=== PATIENT | female | born 1965 | race Caucasian/White ===

== ENCOUNTER 2021-05-21 21:55 | Inpatient (IN) | payer OTHER ==
[~2021-05-21] VITALS: Ht 162.6 cm; Wt 78.9 kg
[2021-05-22] MEDS ORDERED: FISH OIL 1,0001 EACH PO (03:20)
[2021-05-22] MEDS ORDERED: LOPRESSOR 25 MG25 MG PO (03:21)
[2021-05-22] MEDS ORDERED: BRILINTA60 MG PO (03:21)
[2021-05-22] MEDS ORDERED: WELLBUTRIN 75 M75 MG PO (03:21)
[2021-05-22 03:22] LABS: HEMOGLOBIN 14.2 gm/dl (12.3-15.3); RED BLOOD COUNT 4.48 M/UL (4.00-5.10); WHITE BLOOD COUNT 10.3 K/UL (4.5-11.0)
[2021-05-22] MEDS ORDERED: ELAVIL 50 MG TA50 MG PO (03:22)
[2021-05-22] MEDS ORDERED: LOPID600 MG PO (03:22)
[2021-05-22] MEDS ORDERED: MAGNESIUM500 MG PO (03:23)
[2021-05-22] MEDS ORDERED: VISTARIL50 MG PO (03:23)
[2021-05-22] MEDS ORDERED: MELATONIN5 M2 PO (03:24)
[2021-05-22] MEDS ORDERED: ASPIRIN81 MG PO (03:25)
[2021-05-22] MEDS ORDERED: PRILOSEC OTC20 MG PO (03:25)
[2021-05-22] MEDS ORDERED: SEROQUEL100 MG PO (03:25)
[2021-05-22] MEDS ORDERED: CLARITIN10 MG PO (03:26)
[2021-05-22] MEDS ORDERED: LASIX20 MG PO (03:27)
[2021-05-22] MEDS ORDERED: [UNRECOGNIZED DRUG - OTHER] PO (03:27)
[2021-05-22] MEDS ORDERED: PLAVIX75 MG PO (03:27)
[2021-05-22] MEDS ORDERED: EFFEXOR 37.537.5 MG PO (03:28)
[2021-05-22] MEDS ORDERED: FLUOXETINE HCL20 M1 PO (03:28)
[2021-05-22] MEDS ORDERED: LIPITOR40 MG PO (03:28)
[2021-05-22] MEDS ORDERED: ALLOPURINOL100 MG PO (03:29)
[2021-05-22 04:52] LABS: BUN/CREATININE RATIO 27 (0-10)
[2021-05-23 03:13] LABS: HEMOGLOBIN 12.6 gm/dl (12.3-15.3); WHITE BLOOD COUNT 8.6 K/UL (4.5-11.0)
[2021-05-23 03:18] LABS: RED BLOOD COUNT 3.96 M/UL (4.00-5.10)
[2021-05-23 04:07] LABS: BUN/CREATININE RATIO 25 (0-10)
[2021-05-24 06:33] LABS: HEMOGLOBIN 11.1 gm/dl (12.3-15.3); RED BLOOD COUNT 3.59 M/UL (4.00-5.10); WHITE BLOOD COUNT 8.1 K/UL (4.5-11.0)
--- NOTE | 2021-05-24 09:03 | NUR ---
PATIENT HAS TEMP OF 102.6. PROVIDE NOTIFIED. WILL CONTINUE TO MONITOR.
[2021-05-25 04:00] LABS: HEMOGLOBIN 9.7 gm/dl (12.3-15.3); WHITE BLOOD COUNT 6.7 K/UL (4.5-11.0)
[2021-05-25 04:02] LABS: RED BLOOD COUNT 3.15 M/UL (4.00-5.10)
[2021-05-25 04:22] LABS: BUN/CREATININE RATIO 18 (0-10)
[2021-05-26 04:20] LABS: BUN/CREATININE RATIO 18 (0-10)
[2021-05-27 07:40] LABS: BUN/CREATININE RATIO 16 (0-10)
[2021-05-28 07:26] LABS: HEMOGLOBIN 9.5 gm/dl (12.3-15.3); RED BLOOD COUNT 3.24 M/UL (4.00-5.10); WHITE BLOOD COUNT 6.2 K/UL (4.5-11.0)
[2021-05-30 11:29] LABS: HEMOGLOBIN 11.2 gm/dl (12.3-15.3); WHITE BLOOD COUNT 7.7 K/UL (4.5-11.0)
[2021-05-30 11:32] LABS: RED BLOOD COUNT 3.57 M/UL (4.00-5.10)
[2021-05-30 12:06] LABS: BUN/CREATININE RATIO 25 (0-10)
--- NOTE | 2021-05-30 18:13 | NUR ---
ATTEMPTED TO CALL REPORT TO [facility] @1809 AND @ 1817...NO ANSWER.
== END 2021-05-30 18:10 | disposition home health service (06) | DRG 853 ==
LOC: PROG CARE 21:55 → M/S 05-22 01:31 → PROG CARE 05-22 01:31 → M/S 05-23 23:15
PROVIDERS: Internal Medicine; Orthopaedic Surgery; ADMIT Internal Medicine
PROC: 0PSG04Z Reposition Left Humeral Shaft with Internal Fixation Device, Open Approach (ICD-10-PCS; principal; 2021-05-23 08:00)
DX: A41.51 Sepsis due to Escherichia coli [E. coli] (principal); R65.21 Severe sepsis with septic shock; S42.202A Unspecified fracture of upper end of left humerus, initial encounter for closed fracture; N30.00 Acute cystitis without hematuria; E66.2 Morbid (severe) obesity with alveolar hypoventilation; W10.8XXA Fall (on) (from) other stairs and steps, initial encounter; I25.10 Atherosclerotic heart disease of native coronary artery without angina pectoris; I12.9 Hypertensive chronic kidney disease with stage 1 through stage 4 chronic kidney disease, or unspecified chronic kidney disease; N18.30 Chronic kidney disease, stage 3 unspecified; E11.22 Type 2 diabetes mellitus with diabetic chronic kidney disease; E11.51 Type 2 diabetes mellitus with diabetic peripheral angiopathy without gangrene; E87.5 Hyperkalemia; B96.20 Unspecified Escherichia coli [E. coli] as the cause of diseases classified elsewhere; E11.40 Type 2 diabetes mellitus with diabetic neuropathy, unspecified; F32.A Depression, unspecified; E86.0 Dehydration; F17.210 Nicotine dependence, cigarettes, uncomplicated; E11.65 Type 2 diabetes mellitus with hyperglycemia; F41.9 Anxiety disorder, unspecified; Z95.1 Presence of aortocoronary bypass graft; Z79.4 Long term (current) use of insulin; Z95.5 Presence of coronary angioplasty implant and graft; Y93.89 Activity, other specified; Z68.30 Body mass index [BMI] 30.0-30.9, adult; Y92.89 Other specified places as the place of occurrence of the external cause; Y99.8 Other external cause status; Z79.82 Long term (current) use of aspirin; Z90.710 Acquired absence of both cervix and uterus; Z90.49 Acquired absence of other specified parts of digestive tract; Z83.6 Family history of other diseases of the respiratory system; Z80.8 Family history of malignant neoplasm of other organs or systems; Z98.890 Other specified postprocedural states
CPT/HCPCS: 36415; 71045; 73030; 73200; 76000; 80048; 80053; 80061; 81001; 82550; 82553; 82962; 83036; 83605; 83735; 84100; 84439; 84443; 84484; 85025; 85027; 85610; 85730; 86140; 86850; 86900; 86901; 87040; 87077; 87086; 87186; 93005; 94640; 94664; 94760; 97110-GP-CQ; 97116-GP-CQ; 97162; 97166; 97535; C1713; C9113; J0696; J1100; J1650; J1956; J2001; J2250; J2270; J2405; J2704; J2795; J3010; J7120; U0002